=== PATIENT | male | born 1955 ===

== ENCOUNTER → 2017-01-17 16:54 | Emergency (ER) | payer OTHER ==
--- NOTE | ~2017-01-17 | CR58 ---
[facility] A Service of [facility] & [facility] RADIOLOGY TEXT RESULTS PATIENT: DAYA WILHELM LOCATION: [place] : 53 UNIT #: [id number] AGE: [address]: Loreta Montano SEX: M ORDER DR: [id number] [facility] [address] [place], [place] [address] [id number] MR#: [id number] Acc #: [id number] NAME: DAYA WILHELM : 1955 SEX: M STUDY DATE/TIME: 01/17/2017 15:52 UNIT: [facility] ROOM: STUDY DESCRIPTION: CR Cervical Spine 2 or 3 Views Attending Physician: Loreta Montano Pa-C Ordering Physician: Loreta Montano Pa-C Primary Care Physician: Primary Care Physician No MEDICAL IMAGING REPORT This report is preliminary unless electronic signature is present EXAM Cervical spine 3-view series HISTORY Posterior and lateral neck pain, pain in both shoulders for 2 days. FINDINGS AP, lateral and odontoid views of the cervical spine were obtained. There is degenerative change at C3-4, C4-5, C5-6 and C6-7 with anterior osteophyte formations. There is no subluxation. There is disc space narrowing at all those levels. IMPRESSION Fairly diffuse degenerative changes throughout the cervical spine. No subluxation or fracture is identified. Dictated by... Vamsi Ugarte M.D. THIS IS AN ELECTRONICALLY VERIFIED REPORT Vamsi Ugarte M.D. at 01/18/2017 6:08 AM JOE/geovani TD: 01/17/2017 17:31 JOB #: [id number] MEDICAL IMAGING REPORT Page 1 of 1 COPY
== END | disposition home or self-care (01) ==
LOC: CFTX 16:54
DX: S16.1XXA Strain of muscle, fascia and tendon at neck level, initial encounter (principal); E11.9 Type 2 diabetes mellitus without complications; V49.00XA Driver injured in collision with unspecified motor vehicles in nontraffic accident, initial encounter
CPT/HCPCS: 72040; 99283